=== PATIENT | female | born 1965 | race American Indian/Alaskan Native ===

== ENCOUNTER 2016-02-22 00:58 | Emergency (ER) | payer SELFPAY ==
[2016-02-22 01:18] VITALS: BP 155/94
[2016-02-22 03:00] LABS: BUN/Creatinine Ratio 12.22; Blood Urea Nitrogen 11 mg/dL (7-17); Calcium 9.7 mg/dL (8.4-10.2); Carbon Dioxide 27 mmol/L (22-30); Chloride 100.4 mmol/L (98-107); Glucose 96 mg/dL (65-100); Potassium 4.4 mmol/L (3.6-5.0); Sodium 141 mmol/L (137-145)
[2016-02-22 03:02] LABS: Anion Gap 18 mmol/L
[2016-02-22 03:11] LABS: Basophils % (Auto) 1.1 % (0.0-1.8); Eosinophils % (Auto) 0.9 % (0.0-4.3); Hemoglobin 12.8 gm/dl (10.1-14.3); Mean Corpuscular HGB Conc 33 % (30-34); Mean Corpuscular Hemoglobin 27 pg (28-32); Mean Corpuscular Volume 83 fl (79-97); Platelet Count 238 K/mm3 (140-440); Red Cell Distribution Width 15.1 % (13.2-15.2); White Blood Count 5.7 K/mm3 (4.5-11.0)
--- NOTE | 2016-02-22 11:59 | ED Elopement Review ---
ED Pt Elopement review - Results review Lab results: Laboratory Tests 02/22/16 02/22/16 02/22/16 01:06 02:23 02:23 WBC 5.7 RBC 4.70 Hgb 12.8 Hct 39.0 MCV 83 MCH 27 L MCHC 33 RDW 15.1 Plt Count 238 Lymph % (Auto) 28.3 [place] % (Auto) 9.7 H Eos % (Auto) 0.9 Baso % (Auto) 1.1 Lymph # 1.6 [place] # 0.6 Eos # 0.1 Baso # 0.1 Seg Neutrophils % 60.0 Seg Neutrophils # 3.4 Sodium 141 Potassium 4.4 Chloride 100.4 Carbon Dioxide 27 Anion Gap 18 BUN 11 Creatinine 0.9 Estimated GFR > 60 BUN/Creatinine Ratio 12.22 Glucose 96 POC Glucose 122 H Calcium 9.7 Troponin T < 0.010 02/22/16 05:22 WBC RBC Hgb Hct MCV MCH MCHC RDW Plt Count Lymph % (Auto) [place] % (Auto) Eos % (Auto) Baso % (Auto) Lymph # [place] # Eos # Baso # Seg Neutrophils % Seg Neutrophils # Sodium Potassium Chloride Carbon Dioxide Anion Gap BUN Creatinine Estimated GFR BUN/Creatinine Ratio Glucose POC Glucose Calcium Troponin T < 0.010 - Call Back decision Pt Call Back Decision: No action required
== END 2016-02-22 06:40 | disposition left against medical advice (07) ==
LOC: ED 00:58
DX: R07.9 Chest pain, unspecified (principal); Z53.21 Procedure and treatment not carried out due to patient leaving prior to being seen by health care provider
CPT/HCPCS: 36415; 80048; 82962; 84484; 85025; 93005; 93010